=== PATIENT | female | born 1990 | race Asian ===

== ENCOUNTER 2018-10-27 07:53 | Inpatient (IN) | payer OTHER ==
[2018-10-27] MEDS ORDERED: Lactated Ringers 1000 ML Bag* 1,000 ML IV ONE ×2 (09:20→23:10)
--- NOTE | 2018-10-27 09:40 | HP ---
General Information - Reason for Visit Pt presents with c/o spontaneous rupture to clear fluid at 0330 this morning - General Information Maternal Age: 27 Grav: 1 Para: 0 SAB: 0 IEA: 0 Estimated Due Date: 11/01/18 Determined By: LMP Maternal Blood Type and Rh: B Positive - Results this Serology/RPR Result: Non-Reactive Rubella Result: Immune HBsAg Result: Negative HIV Result: Negative GBS Culture Result: Negative Past Medical History Delivery History: See Records Delivery History Comment: Primip Pertinent Past Medical History: Non-Contributory Pertinent Past Surgical History: None Pertinent Family History: See Records Family History Comment: PGF: . Lung Cancer MGM: . Heart disease - Antepartal Records Antepartal Records: Reviewed, Complicated by: - GDM A1 Review of Systems Constitutional: Comfortable CV Complaint: No Respiratory: Shortness of Breath: No Gastrointestinal: No Nausea/Vomiting, Normal Bowel Movement Genitourinary: Leaking Fluid - clear since 0330 Musculoskeletal: No Complaint Neurological: No Headache, No Visual Changes Movement: Normal Exam Allergies/Adverse Reactions: Allergies No Known Allergies Allergy (Verified 10/27/18 08:56) Vital Signs 10/27/18 08:00 Temperature 98.6 F Pulse Rate 79 Respiratory 18 Rate Blood Pressure 127/85 (mmHg) O2 Sat by Pulse 100 Oximetry Lab Values - Entire Visit: Laboratory Tests 10/27/18 08:33 Vag Amniotic Fld Detect Positive - Measurements Height: 5 ft 6 in Weight: 140 lb Weight in lbs: 140.786754 Body Mass Index (BMI): 22.6 Pre- Weight: 126 lb Weight Gained This : 14 lbs and 0 ozs - Exam Breast: Breast Exam Deferred CVA: No CVA Tenderness Extremities: No Edema Heart: Normal Rhythm/Heart Sounds HEENT: No Significant Findings Lungs: Clear Bilaterally Rectal: Rectal Exam Deferred Reflexes: DTR 2+ Thyroid: No Thyromegaly - Abdominal Exam Abdomen Exam: Non-Tender - Ultrasound/Biophysical Profile Ultrasound Status: Not Done Targeted Exam Findings Estimated Weight: EFW 7.5lbs Cervical Exam: 1cm Effacement: 50% Presenting Part: Vertex Membrane Status: SROM Amniotic Fluid Evaluation: Positive ROM Plus Sterile Speculum Exam: Not done Bleeding/Discharge: None EFM Findings - External Monitor Findings Baseline Heart Rate: 135 External Monitor Findings: Accelerations Present, No Pattern of Variable or Late Decelerations, Variability Moderate, Baseline Stable External Monitor Findings Comment: No evidence of metabolic acidemia Contractions: Irregular, Mild Contraction Frequency: >10 min apart Assessment/Plan - Assessment IUP at 39-2/7 with SROM not in active labor - Obstetrical Risk Factors Obstetrical Risk Factors: Gestational Diabetes - A1 - Plan Plan: Induction - for PROM, Admit - Anticipate Vaginal Delivery Plan Comment: P: Admit. Counseled on PROM and recommendation to induce labor. Pt and FOB agree. Will trial low dose IV pitocin. - Date/Time of Admission Date of Admission: 10/27/18 Time of Admission: 09:42
[2018-10-27] MEDS ORDERED: Oxytocin in LR* 20 UNITS/1,000 ML BAG IVPB SCH (10:00)
[2018-10-27] MEDS ORDERED: Lactated Ringers 1000 ML Bag* 1,000 ML IV SCH (10:00)
[2018-10-27 10:14] LABS: ABS Basophils 0.1 10^3/ul (0-0.2); ABS Eosinophils 0 10^3/ul (0-0.6); ABS Monocytes 0.4 10^3/ul (0-0.8); ABS Neutrophils 4.3 10^3/ul (1.5-7.7); ABS Nucleated RBC 0 10^3/ul; Eosinophil % 0.3 %; Hematocrit 42 % (35-47); Hemoglobin 14.5 g/dl (12.0-16.0); Lymphocyte % 17.2 %; Mean Corpuscular HGB Conc 35 g/dl (31-36); Mean Corpuscular Hemoglobin 33 pg (27-31); Mean Corpuscular Volume 97 fL (80-97); Mean Platelet Volume 9.5 fL (7.4-10.4); Nucleated Red Blood Cells % 0.1; Platelet Count 196 10^3/ul (150-450); Red Blood Count 4.34 10^6/ul (4.00-5.40); Red Cell Distribution Width 13 % (10.5-15); White Blood Count 5.9 10^3/ul (3.5-10.8)
--- NOTE | 2018-10-27 16:20 | PN ---
Progress Note - Progress Note Date of Service: 10/27/18 Note: S: Pt resting comfortably in bed. at bedside and supportive. Feels UCs but nothing "too painful" yet O: BP 100/70 HR 79 T 99.6 FHT: 140bpm. Moderate variability. +Accels. No decels UCs q 4 min. IV pit at 15mu/min VE: 1cm/90%/vtx 0 A: IUP at 39-2/7 with PROM in latent labor No evidence of metabolic acidemia P: Continue IV pitocin. Enc pt to intermittently rest and be upright, walking and changing positions. Reassurance provided as pt continues to report feeling anxious and nervous.
[2018-10-27] MEDS ORDERED: Promethazine INJ(RESTRICTED)* 25 MG/ML 1 ML VIAL IV ONE (20:01)
[2018-10-27] MEDS ORDERED: Nalbuphine* 10 MG/ML 1 ML VIAL IV ONE (20:01)
[2018-10-27] MEDS ORDERED: Promethazine INJ(RESTRICTED)* 25 MG/ML 1 ML VIAL ONE (20:04)
[2018-10-27] MEDS ORDERED: Nalbuphine* 10 MG/ML 1 ML VIAL ONE (20:04)
--- NOTE | 2018-10-27 20:07 | PN ---
Progress Note - Progress Note Date of Service: 10/27/18 Note: S: Pt increasingly uncomfortable. Requests VE so that she can discuss pain mgmt options O: BP 111/79 HR 67 T 97.9 FHT: 135bpm. Moderate variability. +Accels. No decels UCs q 2-4, IV pitocin at 11mu/min VE: 3cm/90%/vtx 0 A: IUP at 39-2/7 with PROM in early active labor No evidence of metabolic acidemia P: Counseled for IV pain medication with Nubain/Phenergan vs. Nitronox vs. Labor epidural. All ?s answered. Pt desires trial of Nubain/Phenergan but will consider epidural in the future. PARQ Nubain/Phenergan. Order done.
--- NOTE | 2018-10-27 22:03 | PN ---
Progress Note - Progress Note Date of Service: 10/27/18 Note: S: Pt reports good rest with Nubain/Phenergan but starting to feel more pain with UCs. Interested in VE to see if progress being made O: BP 111/75 HR 67 T 98.8 UCs q 2-4 min, IV pitocin at 13mu/min VE: 3-4/90%/vtx 0 +bloody show A: IUP at 39-2/7 with PROM in early active labor No evidence of metabolic acidemia P: ?s answered re: CEI. Pt not ready to commit yet. Will let us know once desired. Would like to to continue to rest for now. remains at bedside and is very supportive. Continue IV pitocin
[2018-10-27] MEDS ORDERED: OBEPIDURAL* 250 ML EPIDURAL ONE (22:39)
[2018-10-27] MEDS: Lactated Ringers 1000 ML Bag* 1,000 ML IV SCH (23:00)
[2018-10-27] MEDS ORDERED: EPHEDrine (Pressors)* 50 MG/ML VIAL IV PUSH PRN (23:10)
[2018-10-27] MEDS ORDERED: Famotidine TAB* 20 MG PO PRN (23:10)
[2018-10-27] MEDS ORDERED: Phenylephrine IV* 40 MCG/ML 10 ML SYRINGE IV PUSH PRN (23:10)
[2018-10-27] MEDS ORDERED: Sodium Citrate/Citric Acid* 15 ML UDC PO PRN (23:10)
[2018-10-27] MEDS ORDERED: OBEPIDURAL* 250 ML EPIDURAL SCH (23:45)
--- NOTE | 2018-10-28 01:20 | PN ---
Progress Note - Progress Note Date of Service: 10/28/18 Note: S: Pt very comfortable s/p CEI placement. Intermittently napping. Does feels more vaginal pressure with UCs. O: BP 122/62 HR 90 T 99.4 FHT: 135bpm. Moderate variability. +Accels. No decels UCs q 2-3 IV pitocin at 15mu/min VE: 8-9cm/100%/vtx +1 to +2, Bulging forebag A: IUP at 39-3/7 in active labor No evidence of metabolic acidemia P: AROM of forebag to clear fluid. Enc rest. Anticipate trial of pushing soon. Report to Woody Mora CNM to attend
--- NOTE | 2018-10-28 02:44 | PN ---
Progress Note - Progress Note Date of Service: 10/28/18 Note: Quick Note: Woody Mora CNM at bedside. Trial of pushing initiated.
[2018-10-28] MEDS: Lactated Ringers 1000 ML Bag* 1,000 ML IV SCH ×2 (03:27→04:21)
[2018-10-28] MEDS ORDERED: Glycerin ADULT SUPP PR PRN (05:35)
[2018-10-28] MEDS ORDERED: Dibucaine 1% 28.35 GM TUBE PR PRN (05:35)
[2018-10-28] MEDS ORDERED: Acetaminophen TAB* 325 MG PO PRN (05:35)
--- NOTE | 2018-10-28 05:47 | PROCNOTE ---
[facility] OB: Delivery Note - Delivery A Date of : 10/28/18 Time of : 04:45 [place] Sex: Female Score 1 Minute: 9 Score 5 Minutes: 9 Gestational Age in Weeks and Days at Delivery: 39 Weeks and 3 Days Delivery Method: Spontaneous Vaginal Labor: Induced - for PROM Did Patient attempt ?: N/A, No Previous Amniotic Fluid: Clear Estimated Blood Loss: 400 Anesthesia/Analgesia: IM/IV, CEI for Labor Anesthesia Comment: [place] Delivered By: Jessy Mora - Nursery Level of Nursery: Regular/Bedside - Perineum Perineal Injury: Vaginal Laceration - 3cm, 1st Degree - perineal Perineal Injury Comment: repaired with 3-0 rapide Perineal Repair: By Delivering Practioner - Events Delivery Events of Note: Pitocin During Labor, Supplemental O2 to Mother, ROM > 24 Hours - Additional Delivery Notes Additional Delivery Notes: Pt admitted at 39+2 for PROM clear fluid and IV pitocin IOL. Slow progress in early labor, but eventually led to onset of active labor. Length of active phase 6 hours and 37 minutes, pt pushed for 2 hours and 4 minutes. Category II FHT during second stage with repetitive variable decels with pushing, rapid return to baseline, moderate variability, O2 by mask and IV fluids. Strong maternal pushing effort led to , liveborn female. OA to ROT, shoulders followed easily. [place] vigorous with spontaneous cry, heartbeat >110 BPM. Delivered to maternal abdomen. Cord clamped x2 and cut once pulsations ceased. Spontaneous delivery of intact placenta, membranes complete. Fundus firm to massage with IV pitocin infusing. Minimal bleeding noted. Careful inspection of perineum revealed 3cm vaginal laceration and first degree perineal laceration, repaired in the usual fashion, anatomy restored, good homeostasis achieved. EBL 400 mL. At time of note, mother and in stable condition, initiated.
[2018-10-28] MEDS ORDERED: Oxytocin in LR* 20 UNITS/1,000 ML BAG IVPB SCH (06:00)
[2018-10-28] MEDS ORDERED: Lactated Ringers 1000 ML Bag* 1,000 ML IV SCH (06:00)
[2018-10-28] MEDS: Witch Hazel PAD* JAR TOPICAL PRN (07:57)
[2018-10-28] MEDS: Docusate CAP* 100 MG PO SCH ×3 (07:59→21:08)
[2018-10-28] MEDS: Ibuprofen TAB* 600 MG PO PRN ×3 (07:59→21:07)
[2018-10-28] MEDS ORDERED: Simethicone TAB* 80 MG TAB.CHEW PO SCH (08:30)
[2018-10-29 07:02] LABS: ABS Basophils 0 10^3/ul (0-0.2); ABS Eosinophils 0.1 10^3/ul (0-0.6); ABS Lymphocytes 1.2 10^3/ul (1.0-4.8); ABS Monocytes 0.7 10^3/ul (0-0.8); ABS Neutrophils 8.1 10^3/ul (1.5-7.7); ABS Nucleated RBC 0 10^3/ul; Hematocrit 36 % (35-47); Hemoglobin 12.3 g/dl (12.0-16.0); Lymphocyte % 12.2 %; Mean Corpuscular HGB Conc 35 g/dl (31-36); Mean Corpuscular Hemoglobin 34 pg (27-31); Mean Corpuscular Volume 97 fL (80-97); Mean Platelet Volume 8.9 fL (7.4-10.4); Nucleated Red Blood Cells % 0; Platelet Count 145 10^3/ul (150-450); Red Blood Count 3.64 10^6/ul (4.00-5.40); Red Cell Distribution Width 13 % (10.5-15); White Blood Count 10.2 10^3/ul (3.5-10.8)
[2018-10-29] MEDS: Ibuprofen TAB* 600 MG PO PRN ×2 (07:59→14:13)
[2018-10-29] MEDS ORDERED: Ferrous Gluconate TAB* 324 MG TAB PO SCH (09:00)
[2018-10-29] MEDS: Docusate CAP* 100 MG PO SCH ×3 (14:13→20:54)
[2018-10-29] MEDS: Hydrocortisone 1% CREAM* 30 GM TUBE TOPICAL SCH ×2 (14:14→20:54)
[2018-10-29] MEDS: Witch Hazel PAD* JAR TOPICAL PRN (20:53)
[2018-10-30 09:05] VITALS: BP 95/63
[2018-10-30] MEDS: Ibuprofen TAB* 600 MG PO PRN (09:40)
[2018-10-30] MEDS: Hydrocortisone 1% CREAM* 30 GM TUBE TOPICAL SCH (09:40)
[2018-10-30] MEDS: Docusate CAP* 100 MG PO SCH (09:42)
[2018-10-30] MEDS: Witch Hazel PAD* JAR TOPICAL PRN (12:22)
== END 2018-10-30 12:24 | disposition home or self-care (01) | DRG 807 ==
LOC: MCHOBOUT 07:53 → MCHOB 09:24
PROVIDERS: ADMIT Midwife; ATTEND Midwife
PROC: 10E0XZZ Delivery of Products of Conception, External Approach (ICD-10-PCS; principal; 2018-10-28)
PROC: 3E033VJ Introduction of Other Hormone into Peripheral Vein, Percutaneous Approach (ICD-10-PCS; 2018-10-28)
PROC: 0HQ9XZZ Repair Perineum Skin, External Approach (ICD-10-PCS; 2018-10-28)
PROC: 10907ZC Drainage of Amniotic Fluid, Therapeutic from Products of Conception, Via Natural or Artificial Opening (ICD-10-PCS; 2018-10-28)
DX: O24.429 Gestational diabetes mellitus in childbirth, unspecified control (principal); Z37.0 Single live birth; O70.0 First degree perineal laceration during delivery; O76 Abnormality in fetal heart rate and rhythm complicating labor and delivery; Z3A.39 39 weeks gestation of pregnancy
CPT/HCPCS: 36415; 84112; 85025; 86850; 86900; 86901; A9270-GY; J2300; J2550

== ENCOUNTER 2022-12-08 22:54 | Inpatient (IN) ==
[2022-12-08] MEDS ORDERED: Lactated Ringers 1000 ml BAG 1,000 ML IV ONE (23:40)
[2022-12-08] MEDS ORDERED: Buffered Lidocaine 1% SYRIN 1 ml INTRADERM ONE (23:40)
[2022-12-08] MEDS ORDERED: Lactated Ringers 1000 ml BAG 1,000 ML IV SCH (23:45)
[2022-12-09] MEDS ORDERED: Nalbuphine 10 MG/ML 1 ML VIAL IV ONE (00:04)
[2022-12-09] MEDS ORDERED: Promethazine INJ(RESTRICTED) 25 MG/ML 1 ml VIAL IV ONE (00:04)
[2022-12-09 00:20] LABS: ABS Eosinophils 0.2 10^3/ul (0-0.6); ABS Lymphocytes 1.8 10^3/ul (1.0-4.8); ABS Monocytes 0.8 10^3/ul (0-0.8); ABS Neutrophils 5.3 10^3/ul (1.5-7.7); Eosinophil % 2.2 %; Hematocrit 37 % (35-47); Lymphocyte % 22.2 %; Mean Corpuscular HGB Conc 35 g/dL (31-36); Mean Corpuscular Hemoglobin 34 pg (27-31); Mean Corpuscular Volume 97 fL (80-97); Mean Platelet Volume 7.6 fL (7.4-10.4); Nucleated Red Blood Cells % 0.3; Platelet Count 247 10^3/uL (150-450); Red Blood Count 3.86 10^6 /uL (3.70-4.87); Red Cell Distribution Width 13 % (10-15); White Blood Count 8.1 10^3/uL (3.5-10.8)
[2022-12-09 00:41] LABS: Urine Benzodiazepine Screen None Detected (None Detect); Urine Cannabinoids Screen None Detected (None Detect); Urine Opiates Screen None Detected (None Detect)
[2022-12-09] MEDS ORDERED: Lidocaine 1% VIAL 10 MG/ML VIAL 30 ML ONE ×2 (04:35→04:37)
[2022-12-09] MEDS ORDERED: OBEPIDURAL (200 ML) 200 ML EPIDURAL ONE (04:38)
[2022-12-09] MEDS ORDERED: Ropivacaine (OR use only) 2 MG/ML 10 ML ONE ×2 (04:40)
[2022-12-09] MEDS ORDERED: Bupivacaine 0.25% SDV PF 10 ML VIAL INJ ONE ×2 (04:42→04:43)
[2022-12-09 06:24] LABS: Urine Appearance Cloudy; Urine Bilirubin Negative (Negative); Urine Blood Negative (Negative); Urine Color Yellow; Urine Glucose Negative (Negative); Urine Ketones Negative (Negative); Urine Nitrite Negative (Negative); Urine Protein 2+(100 mg/dL) (Negative); Urine Specific Gravity 1.017 (1.002-1.030); Urine Urobilinogen Negative (Negative)
[2022-12-09 06:32] LABS: Urine Bacteria Absent (Absent); Urine Red Blood Cell 1+(3-5/hpf) (Absent); Urine Squamous Epithelial Cell Present (Absent); Urine White Blood Cell 1+(6-10/hpf) (Absent); Urine Yeast Present (Absent)
[2022-12-09] MEDS ORDERED: Phenylephrine 40 mcg/mL 10mL (400mcg) SYRINGE IV PUSH PRN ×2 (07:37)
[2022-12-09] MEDS ORDERED: OBEPIDURAL (200 ML) 200 ML EPIDURAL SCH (08:00)
[2022-12-09] MEDS ORDERED: Oxytocin in LR 20,000 MILLI.UNIT/1,000 ML BAG IV ONE (08:58)
[2022-12-09] MEDS ORDERED: Glycerin ADULT 2.4 gm SUPP PR PRN (09:51)
[2022-12-09] MEDS ORDERED: Dibucaine 1% OINT 28.35 GM TUBE PR PRN (09:51)
[2022-12-09] MEDS ORDERED: Lactated Ringers 1000 ml BAG 1,000 ML IV SCH (10:00)
[2022-12-09] MEDS ORDERED: Oxytocin in LR 20,000 MILLI.UNIT/1,000 ML BAG IV SCH (10:15)
[2022-12-09] MEDS: Witch Hazel PAD JAR TOPICAL PRN (13:47)
[2022-12-09] MEDS ORDERED: Betamethasone 6 mg/ml 5 ml VIAL IM SCH (14:00)
[2022-12-10 07:33] LABS: Hematocrit 39 % (35-47); Hemoglobin 13.5 g/dL (12.0-16.0)
[2022-12-10] MEDS: Witch Hazel PAD JAR TOPICAL PRN (13:41)
[2022-12-11 08:04] VITALS: BP 108/80
== END 2022-12-11 12:21 | disposition home or self-care (01) | DRG 807 ==
LOC: MCHOBOUT 22:54 → MCHOB 23:34
PROVIDERS: ADMIT Midwife; ATTEND Midwife